=== PATIENT | male | born 1975 | race Caucasian/White ===

== ENCOUNTER 2016-09-28 09:39 | Emergency (ER) | payer OTHER ==
[~2016-09-28] VITALS: Ht 172.7 cm; Wt 83.9 kg
[2016-09-28 09:45] VITALS: BP 123/82
--- NOTE | 2016-09-28 09:56 | ED.ADGEN ---
Adult General HPI HPI Patient is a 41-year-old man, who presents to the emergency department with a complaint of right ear pressure and diminished hearing. 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 He states that he is noted intermittent episodes of pressure in his right ear over the past several weeks. States that he was running today, when the pressure got worse, and he felt fairly dizzy. Denies any vertiginous type symptoms, any nausea or vomiting, any fevers or chills, any headache, any vision changes, any rhinorrhea, nasal congestion, cough. He denies any pain at this time, states it is more of a pressure sensation and it is hard to hear. Denies any sore throat, any chest pain, shortness of breath, injuries or other complaints. States that he took [place] cold and flu last night without relief. No other medications or interventions. Review of Systems Review of Systems Constitutional: Denies fever or chills [] Eyes: Denies change in visual acuity, redness, or eye pain [] HENT: Denies nasal congestion or sore throat [] right ear "pressure", with diminished hearing. Episode of dizziness while running this morning. Respiratory: Denies cough or shortness of breath [] Cardiovascular: No additional information not addressed in HPI [] GI: Denies abdominal pain, nausea, vomiting, bloody stools or diarrhea [] : Denies dysuria or hematuria [] Musculoskeletal: Denies back pain or joint pain [] Integument: Denies rash or skin lesions [] Neurologic: Denies headache, focal weakness or sensory changes [] Endocrine: Denies polyuria or polydipsia [] Current Medications Current Medications Current Medications Medications (Trade) Dose Ordered Sig/[facility] Start Time Stop Time Status Last Admin Dose Admin Docusate Sodium (Colace Solution) 100 mg 1X ONCE 09/28/16 10:15 09/28/16 10:16 DC Allergies Allergies Allergies Coded Allergies Type Severity Reaction Last Updated Verified No Known Drug Allergies 09/28/16 No Physical Exam Physical Exam Constitutional: Well developed, well nourished, no acute distress, non-toxic appearance. [] HENT: Normocephalic, atraumatic, bilateral external ears normal, oropharynx moist, no oral exudates, nose normal. Patient with significant cerumen impaction bilaterally, unable to evaluate the tympanic membranes due to this finding. External canal is normal, no pain with movement of the tragus, no temporal tenderness or mastoid tenderness. Eyes: PERRLA, EOMI, conjunctiva normal, no discharge. [] Neck: Normal range of motion, no tenderness, supple, no stridor. [] Cardiovascular:Heart rate regular rhythm, no murmur on S1, S2, rubs or gallops. [] Lungs & Thorax: Bilateral breath sounds clear to auscultation, no wheezing, rhonchi, rales. No chest or crepitus or tenderness. [] Abdomen: Bowel sounds normal, soft, no tenderness, no rebound, rigidity, no guarding, no masses, no pulsatile masses. [] Skin: Warm, dry, no erythema, no rash. [] Back: No tenderness, no CVA tenderness. [] Extremities: No tenderness, no cyanosis, no clubbing, ROM intact, no edema. [] Neurologic: Alert and oriented X 3, normal motor function, normal sensory function, no focal deficits noted. [] Psychologic: Affect normal, judgement normal, mood normal. [] EKG EKG Not indicated. [] Radiology/Procedures Radiology/Procedures Not indicated. [] Course & Med Decision Making Course & Med Decision Making Pertinent Labs and Imaging studies reviewed. (See chart for details) Patient's examination reveals significant cerumen impaction bilaterally. Unable to visualize tympanic membranes due to this impaction. Patient states that he has been told previously that he makes excessive amount of cerumen. Discussed with patient, will infiltrate ear canal with Colace, and attempt cerumen removal to see if this will assist in the patient's symptoms, and to allow a clear evaluation of the internal ear. Colace infiltrated, with cotton wick, allowed to sit for 10 minutes. On reevaluation, I was able to remove a large portion of earwax without any difficulty. Patient tolerated procedure without issue. On reevaluation, the sensation of a clogged ear and pressure has fully resolved, patient states that his hearing is now back to normal. He is ambulating without difficulty in the emergency department. No injury or tympanic ramp maladies were identified, patient with very mild irritation of the inner ear canal, I did discuss concerning symptoms that prompt return to the emergency department for additional evaluation with the patient, and the use of Debrox drops in the left ear over the next 4 days, and then use of drops as needed in the right ear if wax buildup recurs. Patient voiced understanding and agreement with plan as stated, discharged with prescription for Debrox and instructions as stated. Final Impression Final Impression [] Problems: Dragon Disclaimer Dragon Disclaimer This electronic medical record was generated, in whole or in part, using a voice recognition dictation system. Departure: Impression: Primary Impression: Cerumen impaction Disposition: HOME, SELF-CARE Condition: IMPROVED Scripts Carbamide Peroxide (CARBAMIDE PEROXIDE) 15 Ml Drops 15 ML OT DAILY, #5 DROP Apply 5 drops to 10 drops to the affected ear once daily for 4 days if symptoms of cerumen impaction develop. Prov: JASMIN MARTÍNEZ DO 09/28/16 JASMIN MARTÍNEZ DO Sep 28, 2016 09:56
[2016-09-28] MEDS ORDERED: CARB15DR58 OT (10:06)
[2016-09-28] MEDS ORDERED: DOCUSATE 100 MG/10 ML SOLUTION. PO ONE (10:15)
== END 2016-09-28 10:31 | disposition home or self-care (01) ==
LOC: ER 09:39
DX: H61.21 Impacted cerumen, right ear (principal); R42 Dizziness and giddiness
CPT/HCPCS: 69209; 69210; 99282-25